=== PATIENT | female | born 1945 | race Caucasian/White ===

== ENCOUNTER 2017-07-06 08:39 | Outpatient (CLI) | payer OTHER, MEDICARE ==
[~2017-07-06 08:39] MED LIST: ACTONEL PO; CALCIUM PO; CHOL100038 PO; [UNRECOGNIZED DRUG - OTHER]
== END 2017-07-06 17:41 | disposition home or self-care (01) ==
LOC: SMA 08:39
PROVIDERS: ATTEND Obstetrics & Gynecology Gynecology
DX: Z12.31 Encounter for screening mammogram for malignant neoplasm of breast (principal)
CPT/HCPCS: 77067

== ENCOUNTER 2017-07-21 08:13 | Outpatient (CLI) | payer OTHER, MEDICARE | END 2017-07-21 20:06 | disposition home or self-care (01) | LOC: SUS 08:13 | PROVIDERS: ATTEND Obstetrics & Gynecology Gynecology | DX: N63.20 Unspecified lump in the left breast, unspecified quadrant (principal); N63.10 Unspecified lump in the right breast, unspecified quadrant | CPT/HCPCS: 76641 ==

== ENCOUNTER 2018-10-04 08:42 | Outpatient (CLI) | payer OTHER, MEDICARE | END 2018-10-04 21:19 | disposition home or self-care (01) | LOC: SMA 08:42 | PROVIDERS: ATTEND Obstetrics & Gynecology Gynecology | DX: N64.89 Other specified disorders of breast (principal); R92.2 Inconclusive mammogram; N63.0 Unspecified lump in unspecified breast; Z80.3 Family history of malignant neoplasm of breast | CPT/HCPCS: 76641; 77066 ==

== ENCOUNTER 2019-07-24 17:43 | Emergency (ER) | payer OTHER, MEDICARE ==
[~2019-07-24] VITALS: Ht 172.7 cm; Wt 52.2 kg
[2019-07-24 17:49] VITALS: BP_SYST 167
--- NOTE | 2019-07-24 17:50 | NUR ---
Patient to ER bed 6 to gown for evaluation. Side rails up. Report given to Karen BERMAN
--- NOTE | 2019-07-24 17:52 | NUR ---
Patient arrived in the ED c/o NAUSEA, VOMITING, BLE PAIN AND WEAKNESS. Denied any loss of consciousness. Denied any chest pain or SOB. Denied any fevers, chills. Patient is alert and oriented x4, respirations even and unlabored, speaking in full sentences, and ambulating with a steady gait. VSS, pain level 7/10. at bedside. Informed of the approximate wait time. Instructed to notify ED staff for any changes in condition or worsening of symptoms while waiting to be seen by the provider. Patient verbalized understanding.
--- NOTE | 2019-07-24 18:12 | NUR ---
ER Dr. Henry at bedside examining patient.
[2019-07-24] MEDS ORDERED: ONDANSETRON 4 MG ODT TAB PO ONE (18:30)
[2019-07-24] MEDS ORDERED: MORPHINE 2 MG/ML INJ. SYRINGE IM ONE (18:30)
--- NOTE | 2019-07-24 18:30 | NUR ---
Administered Zofran PO as ordered by Dr. Henry. Patient tolerated the medication well. See eMAR for details.
--- NOTE | 2019-07-24 18:33 | NUR ---
ECG done at bedside as ordered by Dr. Henry. Patient tolerated the procedure well. Report given to
--- NOTE | 2019-07-24 18:41 | NUR ---
Administered Morphine Sulfate IM as ordered by Dr. Henry. Patient tolerated the medications well. See eMAR for details.
[2019-07-24] MEDS ORDERED: NACL 0.9% 1,000 ML IV ONE (18:56)
[2019-07-24] MEDS ORDERED: ONDANSETRON HCL 4 MG/2 ML VIAL IVP ONE ×2 (19:00→21:30)
--- NOTE | 2019-07-24 19:15 | NUR ---
Report given and care transferred to CULLEN Whipple.
--- NOTE | 2019-07-24 19:20 | NUR ---
Assumed care of patient, patient AOx4, resting comfortably in bed, states she experienced bilateral lower leg pain and weakness, vomiting, lightheadedness, and dizziness. Patient states she was prescribed Dilantin 50mg for tinnitis. Patient states that she attributes her symptoms as side effects of Dilantin. She further states that she was previously on Dilantin 100mg TID and experiencing the same symptoms. She states that she thought that because it was a smaller dose, it would be ok to take. at bedside.
[2019-07-24 19:37] LABS: BASOPHILS % (AUTO) 0.2 % (0.0-2.0); EOSINOPHILS # (AUTO) 0.1 K/uL (0.0-0.4); EOSINOPHILS % (AUTO) 0.6 % (0.0-4.0); HEMATOCRIT 40.8 % (36-48); HEMOGLOBIN 13.6 g/dL (12.0-16.0); LYMPHOCYTES # (AUTO) 0.6 K/uL (1.0-5.5); LYMPHOCYTES % (AUTO) 5.2 % (20.5-51.5); MEAN CORPUSCULAR HEMOGLOBIN 31 pg (27-31); MEAN CORPUSCULAR HGB CONC 34 % (32-36); MEAN CORPUSCULAR VOLUME 92 fL (79.0-98.0); MONOCYTES # (AUTO) 0.5 K/uL (0.0-1.0); MONOCYTES % (AUTO) 4.1 % (1.7-9.3); NEUTROPHILS # (AUTO) 10.7 K/uL (1.8-7.7); NEUTROPHILS % (AUTO) 89.9 % (40.0-70.0); PLATELET COUNT (AUTO) 226 K/uL (130-430); RED BLOOD CELL COUNT(AUTO) 4.43 MIL/uL (4.2-6.2); RED CELL DISTRIBUTION WIDTH 13.2 % (9.0-15.0)
[2019-07-24 19:45] LABS: ANION GAP 7 (5-15); CALCIUM 8.6 mg/dL (8.4-11.0); CHLORIDE 103 mmol/L (98-107); CREATININE 0.95 mg/dL (0.55-1.30); GLUCOSE 143 mg/dL (70-99); POTASSIUM 3.7 mmol/L (3.5-5.1); SODIUM SERUM 141 mmol/L (136-145); UREA NITROGEN, BLOOD 15 mg/dL (8-21)
[2019-07-24 19:48] LABS: PROTHROMBIN TIME 9.9 SECS (9.5-12.5)
--- NOTE | 2019-07-24 19:55 | NUR ---
# 18 gauge angiocath placed to RAC. Use of asceptic technique. Opsite placed over site. Blood return noted. Flushed with 10 cc of normal saline. No evidence of infiltration noted. Patient tolerated well.
[2019-07-24 19:56] LABS: ALANINE AMINOTRANSFERASE 17 U/L (12-78); ALBUMIN 3.6 g/dL (3.4-4.8); ASPARTATE AMINOTRANSFERASE 13 U/L (10-37); LIPASE 78 U/L (73-393); TOTAL BILIRUBIN 1.2 mg/dL (0.0-1.0)
[2019-07-24] MEDS ORDERED: KETOROLAC TROMETHAMINE 30 MG VIAL IM ONE (21:15)
--- NOTE | 2019-07-24 21:15 | NUR ---
Patient ambulated to restroom with steady gait.
[2019-07-24] MEDS ORDERED: KETOROLAC TROMETHAMINE 30 MG VIAL IVP ONE (21:30)
[2019-07-24 21:40] LABS: COLOR,URINE STRAW (YELLOW)
[2019-07-24 21:41] LABS: CLARITY/URINE CLEAR (CLEAR); PH,URINE 7.5 (5.0-8.0); PROTEIN URINE NEGATIVE (NEGATIVE)
[2019-07-24 21:42] LABS: BILIRUBIN,URINE NEGATIVE (NEGATIVE); BLOOD, URINE NEGATIVE (NEGATIVE); GLUCOSE,URINE NEGATIVE (NEGATIVE); KETONES,URINE NEGATIVE (NEGATIVE); LEUKOCYTE ESTERASE ,URINE NEGATIVE (NEGATIVE)
[2019-07-24 21:43] LABS: NITRITE, URINE NEGATIVE (NEGATIVE); UROBILINOGEN,URINE 0.2 (0.2-1.0)
[2019-07-24] MEDS ORDERED: MORPHINE 2 MG/ML INJ. SYRINGE IVP ONE (22:15)
[2019-07-24 23:28] VITALS: BP_SYST 142
--- NOTE | 2019-07-24 23:28 | NUR ---
Patient given written and verbal discharge instructions and verbalizes understanding. ER MD discussed with patient the results and treatment provided. Patient in stable condition. ID arm band removed. IV catheter removed intact and dressing applied, no active bleeding. No Rx given. Patient educated on pain management and to follow up with PMD. Pain Scale 0/10. Opportunity for questions provided and answered.
== END 2019-07-24 23:28 | disposition home or self-care (01) ==
LOC: SED 17:43
DX: S23.3XXA Sprain of ligaments of thoracic spine, initial encounter (principal); T42.0X5A Adverse effect of hydantoin derivatives, initial encounter; R25.2 Cramp and spasm; R11.2 Nausea with vomiting, unspecified; Z88.0 Allergy status to penicillin; X58.XXXA Exposure to other specified factors, initial encounter; Y93.89 Activity, other specified; Y92.89 Other specified places as the place of occurrence of the external cause; Y99.8 Other external cause status
CPT/HCPCS: 36415; 80053; 81003; 82550; 83690; 85025; 85610; 85730; 93005; 96361; 96374; 96375; 99284; J1885; J2270; J2405; J7030; Q0162

== ENCOUNTER 2022-01-21 09:52 | Outpatient (CLI) | payer OTHER, MEDICARE | END 2022-01-21 18:12 | disposition home or self-care (01) | LOC: SMA 09:52 | PROVIDERS: ATTEND Obstetrics & Gynecology Gynecology | DX: Z12.31 Encounter for screening mammogram for malignant neoplasm of breast (principal) | CPT/HCPCS: 77067 ==